=== PATIENT | male | born 1985 | race Caucasian/White ===

== ENCOUNTER 2020-04-29 12:46 | Outpatient (CLI) | payer SELFPAY ==
[2020-05-02 05:52] LABS: SARS-CoV-2 RNA Undetected (Undetected); SARS-CoV-2 Specimen Source Nasopharynx
== END 2020-04-29 13:06 ==
PROVIDERS: Visit Provider Obstetrics & Gynecology Gynecology
DX: Z11.59 Encounter for screening for other viral diseases (principal)
CPT/HCPCS: U0003

== ENCOUNTER 2021-07-31 01:52 | Outpatient (CLI) | payer OTHER, SELFPAY ==
--- NOTE | 2021-07-31 06:45 | DI.MRI_ITS ---
Exam(s) MR LUMBAR SPINE WO EXAM: MR LUMBAR SPINE WO CLINICAL HISTORY: lower right back pain, with radiculapathy to right, M54.16 TECHNIQUE: Multiplanar multisequence MRI of the Lumbar Spine was performed. CONTRAST MATERIAL: Noncontrast COMPARISON: No exams were available for comparison FINDINGS: Bones: The last intervertebral disc space is designated the L5/S1 level for the numbering purpose of this examination. Alignment is satisfactory. Incidental bone island T12. Cord: The conus tip ends at the T12 level. It is of normal size and signal intensity. T12-L1: No disc herniations or bulges are present. L1-2: No disc herniations or bulges are present. L2-3: Disc desiccation. Midline annular tear and minimal disc bulging. L3-4: Minimal endplate osteophytes. Disc desiccation and mild disc bulging. L4-5: Mild endplate osteophytes and degenerative signal changes in the in the right inferior endplat e of L4. Disc desiccation and mild concentric disc bulging. L5-S1: Chronic appearing deformity of the posterior aspect of the L5 vertebral body with reduced hei ght compared to the anterior portion. Small endplate osteophytes and mild degenerative signal change s. Disc desiccation and moderate loss of disc height. Mild disc bulging. Mild L5-S1 spondylolisthe sis. Soft tissues: The visualized SI joints and sacrum are well maintained. The paraspinal soft tissues ar e unremarkable. IMPRESSION: Mild multilevel disc bulging without evidence of disc herniation. Degenerative disc changes and mild spondylolisthesis at L 5 S1. No evidence of significant spinal stenosis or neuroforaminal narrowing . DATA REPOSITORY:
== END 2021-07-31 02:12 ==
PROVIDERS: PCP Family Medicine; Visit Provider Physician Assistant
DX: M54.16 Radiculopathy, lumbar region (principal); M51.17 Intervertebral disc disorders with radiculopathy, lumbosacral region; M43.17 Spondylolisthesis, lumbosacral region
CPT/HCPCS: 72148

== ENCOUNTER 2021-08-03 12:14 | Outpatient (CLI) | payer OTHER, SELFPAY ==
--- NOTE | 2021-08-03 11:45 | DI.RAD_ITS ---
Exam(s) XR HIP RT COMPLETE AP PELVIS EXAM: XR HIP RT COMPLETE AP PELVIS INDICATION: recurrent back hip pain, remote hip trauma, M54.50. COMPARISON: No exams were available for comparison TECHNIQUE: 2D digital imaging was performed. FINDINGS: Minimal right hip acetabular spurring. Small cystic area lateral margin right femoral head. Left hi p and SI joints unremarkable. IMPRESSION: DATA REPOSITORY: RADIATION DOSE DELIVERED:
== END 2021-08-03 12:34 ==
PROVIDERS: PCP Family Medicine; Visit Provider Family Medicine
DX: M54.59 Other low back pain (principal); M25.751 Osteophyte, right hip
CPT/HCPCS: 73502

== ENCOUNTER 2021-08-14 04:19 | Outpatient (CLI) | payer OTHER, SELFPAY ==
[2021-08-14 12:49] LABS: Abs Immature Grans 0.01 10^3/uL (0.0-0.06); Absolute Basophil Count 0.02 10^3/uL (0.0-0.2); Absolute Lymphocyte Count 1.14 10^3/uL (1.2-3.4); Absolute Monocyte Count 0.19 10^3/uL (0.1-0.8); Absolute Neutrophil Count 2.41 10^3/uL (1.2-6.7); Basophils % 0.5; Eosinophils % 2.6; HCT 45.4 % (40.0-50.0); HGB 15.3 g/dL (13.5-17.5); Immature Grans % 0.3; Lymphocytes % 29.5; MCH 31.3 pg (27.0-33.0); MCHC 33.7 % (32.0-36.0); MCV 92.8 fL (80-95); MPV 10.5 fL (8.0-11.0); Monocytes % 4.9; Neutrophils % 62.2; Nucleated RBC 0 %; Platelet Count 227 10^3/uL (130-400); RBC 4.89 10^6/uL (4.36-5.78); RDW 12.2 % (11.8-14.1); WBC 3.87 10^3/uL (4.4-10.8)
[2021-08-14 13:04] LABS: ALT 31 U/L (16-63); AST 14 U/L (15-37); Albumin 3.9 g/dL (3.4-5.0); Alkaline Phosphatase 51 U/L (46-116); Anion Gap 9.3 mmol/L (3-11); BUN 12 mg/dL (7-18); Bilirubin, Total 0.7 mg/dL (0.2-1.0); CO2 28.7 mmol/L (21.0-32.0); CREATININE 1.1 mg/dL (0.70-1.30); Calculated LDL 140 mg/dL (<100); Chloride 104 mmol/L (98-107); Cholesterol 229 mg/dL (<200); Glucose 88 mg/dL (74-106); HDL Cholesterol 68 mg/dL (40-60); Potassium 4.5 mmol/L (3.5-5.1); Sodium 142 mmol/L (136-145); Total Protein 6.9 g/dL (6.4-8.2); Triglyceride 105 mg/dL (<150)
[2021-08-14 13:27] LABS: C-Reactive Protein < 0.05 mg/dL (0.0-0.3)
[2021-08-17 10:58] LABS: Hepatitis C Ab w Rflx HCV PCR Negative (Negative)
== END 2021-08-14 04:20 | disposition home or self-care (01) ==
LOC: LOS 04:19
PROVIDERS: PCP Family Medicine; Visit Provider Family Medicine
DX: I10 Essential (primary) hypertension; M54.50 Low back pain, unspecified; Z13.6 Encounter for screening for cardiovascular disorders; Z11.59 Encounter for screening for other viral diseases
CPT/HCPCS: 36415; 80053; 80061; 86803; 85025; 86140

== ENCOUNTER 2022-03-26 01:21 | Outpatient (CLI) | payer OTHER, SELFPAY ==
[2022-03-26 12:29] LABS: HGB 15.4 g/dL (13.5-17.5); MCH 32.6 pg (27.0-33.0); MCV 93 fL (80-95); MPV 10.5 fL (8.0-11.0); Platelet Count 231 10^3/uL (130-400); RBC 4.73 10^6/uL (4.36-5.78); RDW 11.9 % (11.8-14.1); RDW-SD 41.1 fL
[2022-03-26 12:53] LABS: ALT 40 U/L (16-63); AST 19 U/L (15-37); Albumin 3.7 g/dL (3.4-5.0); Alkaline Phosphatase 57 U/L (46-116); Anion Gap 7.6 mmol/L (3-11); BUN 16 mg/dL (7-18); Bilirubin, Total 0.6 mg/dL (0.2-1.0); CO2 28.4 mmol/L (21.0-32.0); CREATININE 1.1 mg/dL (0.70-1.30); Chloride 106 mmol/L (98-107); Creatine Kinase 102 U/L (39-308); Glucose 99 mg/dL (74-106); Potassium 4.4 mmol/L (3.5-5.1); Sodium 142 mmol/L (136-145); TSH (W/Ref FT4) 1.26 uIU/mL (0.36-3.74); Total Protein 6.8 g/dL (6.4-8.2)
[2022-03-26 13:21] LABS: Mono Screening Negative (Negative)
[2022-03-28 10:50] LABS: Anaplasma phagocytophilum Negative (Negative); B. miyamotoi PCR Negative (Negative); Babesia divergens/MO-1 Negative (Negative); Babesia duncani Negative (Negative); Babesia microti Negative (Negative); Ehrlichia chaffeensis Negative (Negative); Ehrlichia ewingii/canis Negative (Negative); Ehrlichia muris eauclairensis Negative (Negative)
[2022-03-29 17:28] LABS: Lyme Ab w Rflx to Lyme Confirm Negative (Negative)
== END 2022-03-26 01:22 | disposition home or self-care (01) ==
LOC: LOS 01:21
PROVIDERS: PCP Nurse Practitioner Family; Visit Provider Family Medicine
DX: I10 Essential (primary) hypertension (principal); R53.83 Other fatigue; R53.1 Weakness
CPT/HCPCS: 36415; 80053; 82533; 82550; 85027; 87798; 84443; 86308; 86618

== ENCOUNTER 2024-04-25 09:07 | Outpatient (REF) | payer BC, SELFPAY ==
[2024-04-25 12:20] LABS: Bilirubin Negative (Negative); Blood Negative (Negative); Clarity Clear (Clear); Glucose Negative (Negative); Ketones Negative (Negative); Leukocyte Esterase Negative (Negative); Nitrite Negative (Negative); Specific Gravity 1.015 (1.005-1.025); Urobilinogen 0.2 mg/dL (Up to 0.2)
== END 2024-04-25 09:08 | disposition home or self-care (01) ==
LOC: LBN 09:07
PROVIDERS: PCP Nurse Practitioner Family; Visit Provider Nurse Practitioner Family
DX: Z00.00 Encounter for general adult medical examination without abnormal findings (principal); R39.15 Urgency of urination; R39.89 Other symptoms and signs involving the genitourinary system
CPT/HCPCS: 81003

== ENCOUNTER 2024-04-25 09:08 | Outpatient (CLI) | payer BC, SELFPAY ==
[2024-04-25 12:13] LABS: Abs Immature Grans 0.01 10^3/uL (0.0-0.06); Absolute Basophil Count 0.03 10^3/uL (0.0-0.2); Absolute Eosinophil Count 0.09 10^3/uL (0.0-0.7); Absolute Lymphocyte Count 1.26 10^3/uL (1.2-3.4); Absolute Monocyte Count 0.22 10^3/uL (0.1-0.8); Basophils % 0.8 %; Eosinophils % 2.3 %; HCT 45.9 % (40.0-50.0); HGB 15.1 g/dL (13.5-17.5); Immature Grans % 0.3 %; MCH 31.4 pg (27.0-33.0); MCHC 32.9 % (32.0-36.0); MCV 95 fL (80-95); MPV 10.5 fL (8.0-11.0); Monocytes % 5.6 %; Platelet Count 219 10^3/uL (130-400); RBC 4.81 10^6/uL (4.36-5.78); RDW 12.2 % (11.8-14.1); RDW-SD 43.3 fL; WBC 3.94 10^3/uL (4.4-10.8)
[2024-04-25 12:14] LABS: Absolute Neutrophil Count 2.32 10^3/uL (1.2-6.7)
[2024-04-25 12:33] LABS: Hemoglobin A1C 4.7 % (<5.7)
[2024-04-25 12:47] LABS: ALT 47 U/L (16-63); AST 21 U/L (15-37); Alkaline Phosphatase 66 U/L (46-116); BUN 12 mg/dL (7-18); Bilirubin, Total 0.49 mg/dL (0.2-1.0); CREATININE 1.2 mg/dL (0.70-1.30); Calcium 9.3 mg/dL (8.5-10.1); Calculated LDL 112 mg/dL (<100); Chloride 107 mmol/L (98-107); Cholesterol 199 mg/dL (<200); Estimated GFR 79.38 (mL/min/1.73m2); Glucose 92 mg/dL (74-106); HDL Cholesterol 68 mg/dL (40-60); Potassium 4.1 mmol/L (3.5-5.1); Sodium 144 mmol/L (136-145); TSH (W/Ref FT4) 1.53 uIU/mL (0.36-3.74); Total Protein 7.1 g/dL (6.4-8.2); Triglyceride 98 mg/dL (<150)
[2024-04-25 18:09] LABS: PSA, Screening 0.3 ng/mL (<=2.5)
[2024-04-25 18:47] LABS: HBs Antibody, Quant >1000.0 mIU/mL (See Note); Hep B Surface Ab Positive (See Note); Hepatitis B Core Antibody Negative (Negative); Hepatitis B Surface Antigen Negative (Negative)
[2024-04-25 18:50] LABS: HIV-1/2 Ag & Ab Screen Negative (Negative)
[2024-04-25 19:14] LABS: Hepatitis C Ab w Rflx HCV PCR Negative (Negative)
== END 2024-04-25 09:09 | disposition home or self-care (01) ==
LOC: LOS 09:08
PROVIDERS: PCP Nurse Practitioner Family; Referring Provider Nurse Practitioner Family; Visit Provider Nurse Practitioner Family
DX: Z00.00 Encounter for general adult medical examination without abnormal findings (principal); Z12.5 Encounter for screening for malignant neoplasm of prostate; Z11.59 Encounter for screening for other viral diseases; Z11.4 Encounter for screening for human immunodeficiency virus [HIV]
CPT/HCPCS: 36415; 80053; 80061; 84153; 86704; 86706; 86803; 87340; 87389; 83036; 84443; 85025

== ENCOUNTER 2025-02-14 03:36 | Outpatient (CLI) | payer BC, SELFPAY ==
[2025-02-15 09:03] LABS: Hepatitis B Surface Ag Negative (Negative)
[2025-02-15 09:36] LABS: HIV-1/2 Ag & Ab Screen Negative (Negative)
[2025-02-15 09:42] LABS: Hepatitis C Ab w Rflx HCV PCR Negative (Negative)
[2025-02-15 09:53] LABS: Hep B Core Antibody Negative (Negative)
[2025-02-15 12:11] LABS: Syphilis Serology (RPR) Negative (Negative)
[2025-02-18 11:49] LABS: Chlamydia Result Negative (Negative); GC Result Negative (Negative)
== END 2025-02-14 03:37 | disposition home or self-care (01) ==
LOC: LBO 03:36
PROVIDERS: PCP Nurse Practitioner Family; Visit Provider Obstetrics & Gynecology
DX: Z11.3 Encounter for screening for infections with a predominantly sexual mode of transmission (principal)
CPT/HCPCS: 36415; 86704; 86803; 87340; 87389; 87491; 87591; 86592

== ENCOUNTER 2025-07-25 09:32 | Outpatient (CLI) | payer BC, SELFPAY ==
[2025-07-25 13:59] LABS: HCT 45.6 % (40.0-50.0); HGB 15.6 g/dL (13.5-17.5); MCH 31.2 pg (27.0-33.0); MCHC 34.2 % (32.0-36.0); MCV 91 fL (80-95); MPV 10.8 fL (8.0-11.0); Platelet Count 212 10^3/uL (130-400); RBC 5.00 10^6/uL (4.36-5.78); RDW 11.9 % (11.8-14.1); RDW-SD 39.6 fL; WBC 4.26 10^3/uL (4.4-10.8)
[2025-07-25 14:08] LABS: ALT 28 U/L (10-49); AST 23 U/L (<34); Albumin 4.6 g/dL (3.4-5.0); Alkaline Phosphatase 60 U/L (46-116); Anion Gap 8.3 mmol/L (3-11); BUN 12 mg/dL (9-23); Bilirubin, Total 0.80 mg/dL (0.2-1.2); CO2 29.7 mmol/L (20.0-31.0); Calcium 9.7 mg/dL (8.3-10.6); Chloride 107 mmol/L (98-107); Glucose 70 mg/dL (74-106); Potassium 4.3 mmol/L (3.5-5.1); Sodium 145 mmol/L (136-145); TSH (W/Ref FT4) 2.53 uIU/mL (0.55-4.78); Total Protein 7.1 g/dL (5.7-8.2)
== END 2025-07-25 09:33 | disposition home or self-care (01) ==
LOC: LOS 09:33
PROVIDERS: Nurse Practitioner Family; PCP Nurse Practitioner Family; Visit Provider Nurse Practitioner Family
DX: Z83.49 Family history of other endocrine, nutritional and metabolic diseases (principal); J01.90 Acute sinusitis, unspecified; B96.89 Other specified bacterial agents as the cause of diseases classified elsewhere
CPT/HCPCS: 36415; 80053; 85027; 84443